=== PATIENT | female | born 1970 | race Caucasian/White ===

== ENCOUNTER → 2020-09-17 | Outpatient (CLI) | payer MEDICARE, OTHER ==
[~2020-09-17] MED LIST: FEOSOL325 MG PO; LOPRESSOR 25 MG25 MG PO; PERCOCET 10-321 EACH PO; XANAX1 MG PO; ZESTRIL40 MG PO
== END ==
LOC: US 14:23 → MAMO 15:00
DX: C64.9 Malignant neoplasm of unspecified kidney, except renal pelvis (principal)